=== PATIENT | female | born 1990 | race Two or more races ===

== ENCOUNTER 2017-06-25 17:51 | Emergency (ER) | payer OTHER ==
[2017-06-25 18:51] LABS: ADD UMIC NO; UR ASCORBIC ACID NEGATIVE (NEGATIVE); UR BACTERIA FEW /HPF (NONE SEEN); UR BILIRUBIN (Dip) NEGATIVE (NEGATIVE); UR BLOOD (Dip) NEGATIVE (NEGATIVE); UR CLARITY SLIGHTLY CLOUDY (CLEAR); UR COLOR YELLOW (YELLOW); UR GLUCOSE (Dip) NEGATIVE (NEGATIVE); UR KETONES (Dip) NEGATIVE (NEGATIVE); UR LEUKOCYTE ESTERASE (Dip) NEGATIVE Leu/ul (NEGATIVE); UR NITRITE (Dip) NEGATIVE (NEGATIVE); UR RBC 0 /HPF (0-5); UR SQUAMOUS EPITHELIAL CELL FEW /HPF (FEW); UR TOTAL PROTEIN (Dip) NEGATIVE (NEGATIVE); UR UROBILINOGEN (Dip) NEGATIVE (NEGATIVE); UR WBC 1 /HPF (0-5)
[2017-06-25] MEDS: SOD CHLORIDE 0.9% 1,000 ML IV (18:57)
[2017-06-25] MEDS: METOCLOPRAMIDE 10 MG INJ IV (18:57)
[2017-06-25 19:13] LABS: ADD MAN DIFF? NO
[2017-06-25 19:16] LABS: BASOPHILS % 0.2 % (0.0-2.0); EOSINOPHILS % 0.3 % (0.0-7.0); HEMATOCRIT 40.6 % (37.0-47.0); HEMOGLOBIN 14.2 g/dl (12.0-16.0); LYMPHOCYTES # 1.1 10^3/ul (0.8-2.9); LYMPHOCYTES % 8.6 % (15.0-51.0); MEAN CORPUSCULAR VOLUME 85.8 fl (82.0-101.0); MEAN PLATELET VOLUME 9.5 fl (7.4-10.4); MONOCYTE # 0.7 10^3/ul (0.3-0.9); MONOCYTES % 5.5 % (0.0-11.0); NEUTROPHIL # 10.4 10^3/ul (1.6-7.5); NEUTROPHILS % 85.1 % (39.0-77.0); PLATELET COUNT 345 10^3/UL (140-415); RED BLOOD COUNT 4.73 10^6/ul (4.20-5.40); RED CELL DISTRIBUTION WIDTH 12.6 % (11.5-14.5)
[2017-06-25 19:16] LABS: WHITE BLOOD COUNT 12.3 10^3/ul (4.8-10.8)
[2017-06-25 19:38] LABS: ALANINE AMINOTRANSFERASE 27 IU/L (13-69); ALBUMIN 4.6 g/dl (3.3-4.9); ALBUMIN/GLOBULIN RATIO 1.35; ALKALINE PHOSPHATASE 71 IU/L (42-121); ANION GAP 20 (8-16); ASPARTATE AMINO TRANSFERASE 20 IU/L (15-46); BILIRUBIN,INDIRECT 0.1 mg/dl (0-1.1); BILIRUBIN,TOTAL 0.1 mg/dl (0.2-1.3); BLOOD UREA NITROGEN 6 mg/dl (7-20); CALCIUM 9.2 mg/dl (8.4-10.2); CARBON DIOXIDE 22 mmol/L (21-31); CHLORIDE 102 mmol/L (97-110); CREATININE 0.55 mg/dl (0.44-1.00); GLUCOSE 106 mg/dl (70-220); LIPASE 192 U/L (23-300); SODIUM 140 mmol/L (135-144)
== END 2017-06-25 21:25 | disposition home or self-care (01) ==
LOC: FTE 17:51
DX: O21.9 Vomiting of pregnancy, unspecified (principal); R10.2 Pelvic and perineal pain; Z3A.01 Less than 8 weeks gestation of pregnancy
CPT/HCPCS: 36415; 76801; 80053; 81001; 81003; 83690; 84702; 85025; 86900; 86901; 96374; 99285-25

== ENCOUNTER 2017-08-10 10:12 | Emergency (ER) | payer OTHER ==
[2017-08-10 11:38] LABS: ADD MAN DIFF? NO
[2017-08-10 11:44] LABS: BASOPHILS % 0.4 % (0.0-2.0); EOSINOPHILS # 0.1 10^3/ul (0.0-0.5); EOSINOPHILS % 0.8 % (0.0-7.0); HEMOGLOBIN 13.1 g/dl (12.0-16.0); LYMPHOCYTES # 2.5 10^3/ul (0.8-2.9); LYMPHOCYTES % 22.1 % (15.0-51.0); MEAN CORPUSCULAR HEMOGLOBIN 30.8 pg (29.0-33.0); MEAN CORPUSCULAR HGB CONC 34.5 g/dl (32.0-37.0); MEAN CORPUSCULAR VOLUME 89.4 fl (82.0-101.0); MEAN PLATELET VOLUME 9.3 fl (7.4-10.4); MONOCYTE # 0.7 10^3/ul (0.3-0.9); MONOCYTES % 6.1 % (0.0-11.0); NEUTROPHILS % 70.1 % (39.0-77.0); PLATELET COUNT 347 10^3/UL (140-415); RED BLOOD COUNT 4.25 10^6/ul (4.20-5.40); RED CELL DISTRIBUTION WIDTH 13.3 % (11.5-14.5)
[2017-08-10 11:44] LABS: WHITE BLOOD COUNT 11.4 10^3/ul (4.8-10.8)
[2017-08-10 11:52] LABS: ADD UMIC NO; UR ASCORBIC ACID NEGATIVE (NEGATIVE); UR BACTERIA FEW /HPF (NONE SEEN); UR BILIRUBIN (Dip) NEGATIVE (NEGATIVE); UR BLOOD (Dip) NEGATIVE (NEGATIVE); UR CLARITY SLIGHTLY CLOUDY (CLEAR); UR COLOR YELLOW (YELLOW); UR GLUCOSE (Dip) NEGATIVE (NEGATIVE); UR KETONES (Dip) NEGATIVE (NEGATIVE); UR LEUKOCYTE ESTERASE (Dip) NEGATIVE Leu/ul (NEGATIVE); UR NITRITE (Dip) NEGATIVE (NEGATIVE); UR RBC 0 /HPF (0-5); UR SQUAMOUS EPITHELIAL CELL FEW /HPF (FEW); UR TOTAL PROTEIN (Dip) NEGATIVE (NEGATIVE); UR UROBILINOGEN (Dip) NEGATIVE (NEGATIVE); UR WBC 0 /HPF (0-5)
[2017-08-10 12:02] LABS: ALANINE AMINOTRANSFERASE 27 IU/L (13-69); ALBUMIN 4.2 g/dl (3.3-4.9); ALBUMIN/GLOBULIN RATIO 1.35; ALKALINE PHOSPHATASE 62 IU/L (42-121); ANION GAP 14 (8-16); ASPARTATE AMINO TRANSFERASE 17 IU/L (15-46); BLOOD UREA NITROGEN 5 mg/dl (7-20); CALCIUM 8.9 mg/dl (8.4-10.2); CARBON DIOXIDE 25 mmol/L (21-31); CHLORIDE 104 mmol/L (97-110); CREATININE 0.44 mg/dl (0.44-1.00); GLUCOSE 91 mg/dl (70-220); POTASSIUM 3.5 mmol/L (3.5-5.1); SODIUM 139 mmol/L (135-144); TOTAL PROTEIN 7.3 g/dl (6.1-8.1)
== END 2017-08-10 13:19 | disposition home or self-care (01) ==
LOC: FTE 10:12
DX: O26.891 Other specified pregnancy related conditions, first trimester (principal); R10.31 Right lower quadrant pain; R10.2 Pelvic and perineal pain; Z3A.13 13 weeks gestation of pregnancy
CPT/HCPCS: 36415; 76801; 80053; 81001; 81003; 84702; 85025; 86900; 86901; 99284-25

== ENCOUNTER 2017-08-19 19:42 | Emergency (ER) | payer OTHER | END 2017-08-19 21:10 | disposition home or self-care (01) | LOC: E/R 19:42 | DX: O99.89 Other specified diseases and conditions complicating pregnancy, childbirth and the puerperium (principal); R05 Cough; Z3A.15 15 weeks gestation of pregnancy | CPT/HCPCS: 99283 ==

== ENCOUNTER 2017-10-14 21:38 | Emergency (ER) | payer OTHER | END 2017-10-15 00:36 | disposition home or self-care (01) | LOC: FTE 10-15 00:36 | DX: O99.519 Diseases of the respiratory system complicating pregnancy, unspecified trimester (principal); J06.9 Acute upper respiratory infection, unspecified; Z3A.00 Weeks of gestation of pregnancy not specified | CPT/HCPCS: 99283; Z7502 ==

== ENCOUNTER 2017-10-23 00:15 | Outpatient (CLI) | payer OTHER | END 2017-10-23 02:13 | disposition home or self-care (01) | LOC: OBT 00:15 → L-D 00:17 → OBT 02:13 | DX: O36.8120 Decreased fetal movements, second trimester, not applicable or unspecified (principal); Z3A.23 23 weeks gestation of pregnancy | CPT/HCPCS: Z7500 ==

== ENCOUNTER 2018-07-23 17:46 | Emergency (ER) | payer OTHER | END 2018-07-23 19:40 | disposition home or self-care (01) | LOC: FTE 17:46 | DX: M62.838 Other muscle spasm (principal) | CPT/HCPCS: 99283; Z7502 ==

== ENCOUNTER 2018-08-15 17:05 | Emergency (ER) | payer SELFPAY, OTHER | END 2018-08-15 21:45 | disposition left against medical advice (07) | LOC: FTE 17:05 | DX: Z53.21 Procedure and treatment not carried out due to patient leaving prior to being seen by health care provider (principal) ==